=== PATIENT | female | born 1995 | race American Indian/Alaskan Native ===

== ENCOUNTER 2021-11-11 14:07 | Emergency (ER) | payer SELFPAY ==
[2021-11-11] MEDS ORDERED: ACETAMINOPHEN 325 MG TAB PO ONE (14:59)
--- NOTE | 2021-11-11 14:59 | Emergency Department Report ---
ED Abdominal Pain HPI - General Chief Complaint: Abdominal Pain Stated Complaint: LOWER ABDOMINAL PAIN Time Seen by Provider: 11/11/21 14:29 Source: patient Mode of arrival: Ambulatory Limitations: No Limitations - History of Present Illness Initial Comments: 26-year-old female presents to the ER today with complaints of lower abdominal pain and vaginal bleeding. Patient states that symptoms started this morning. 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 She states that she is only had to use 1 pad since the bleeding started. She states that her last normal menstrual cycle was September 27 through September 30. She states that a week later after her. She noticed that she had some brown vaginal spotting which lasted about 3 days. She did take a home test last week and it was negative. She states that she was supposed to have started her normal menstrual cycle 2 weeks ago. She is not currently on any control. She reports no UTI symptoms, nausea, vomiting, diarrhea or constipation. She is G4, P2 Ab2. MD Complaint: abdominal pain -: This morning - Related Data Allergies Allergy/AdvReac Type Severity Reaction Status Date / Time No Known Allergies Allergy Verified 11/11/21 14:17 ED Review of Systems ROS: Stated complaint: LOWER ABDOMINAL PAIN Other details as noted in HPI Comment: All other systems reviewed and negative Constitutional: denies: chills, fever Eyes: denies: eye pain, eye discharge, vision change ENT: denies: ear pain, throat pain Respiratory: denies: cough, shortness of breath, SOB with exertion, SOB at rest, wheezing Cardiovascular: denies: chest pain, palpitations Gastrointestinal: abdominal pain. denies: nausea, vomiting, diarrhea, constipation, hematemesis, melena, hematochezia Genitourinary: abnormal menses. denies: urgency, dysuria, frequency, hematuria, discharge, dyspareunia Musculoskeletal: denies: back pain, joint swelling, arthralgia Skin: denies: rash, lesions, change in color, change in hair/nails, pruritus Neurological: denies: headache, weakness, numbness, paresthesias, confusion, abnormal gait, vertigo Psychiatric: denies: anxiety, depression, auditory hallucinations, visual hallucinations, homicidal thoughts, suicidal thoughts Hematological/Lymphatic: denies: easy bleeding, easy bruising, swollen glands ED Physical Exam - General Limitations: No Limitations General appearance: alert, in no apparent distress - Head Head exam: Present: atraumatic, normocephalic, normal inspection - Eye Eye exam: Present: normal appearance, PERRL, EOMI Pupils: Present: normal accommodation - Neck Neck exam: Present: normal inspection, full ROM - Respiratory Respiratory exam: Present: normal lung sounds bilaterally. Absent: respiratory distress, wheezes, rales, rhonchi, stridor - Cardiovascular Cardiovascular Exam: Present: regular rate, normal rhythm, normal heart sounds - GI/Abdominal GI/Abdominal exam: Present: soft, tenderness (mild ttp suprapubic area without guarding or rebound ). Absent: distended - Neurological Exam Neurological exam: Present: alert, oriented X3, CN II-XII intact, normal gait - Psychiatric Psychiatric exam: Present: normal affect, normal mood - Skin Skin exam: Present: intact ED Course Vital Signs 11/11/21 11/11/21 14:18 17:47 Temperature 99.2 F 98.2 F Pulse Rate 84 70 Respiratory 16 15 Rate Blood Pressure 115/72 Blood Pressure 128/78 [Right] O2 Sat by Pulse 99 100 Oximetry ED Medical Decision Making - Lab Data Result diagrams: 11/11/21 16:35 11/11/21 16:35 - Medical Decision Making hCG negative. CMP BC and CMP unremarkable. Urinalysis suspect to be more related to contamination than a true UTI and at this time patient has no UTI symptoms. Patient is well-appearing, nontoxic and not in any acute distress. She is neurologically intact with a normal gait. She is hemodynamically stable she has a nonsurgical abdominal exam. I believe patient main concern was try to figure out whether she was given her abnormal bleeding. At this time I do not see an indication for doing any pelvic ultrasounds, CT scans or any additional emergent testing through the ER. Discussed all results with patient. She will be given referral to [facility] for further evaluation. Patient expressed understanding, and agree with plan. Patient was stable at time of discharge Critical care attestation.: If time is entered above; I have spent that time in minutes in the direct care of this critically ill patient, excluding procedure time. ED Disposition Clinical Impression: Abnormal menstrual cycle Disposition: HOME / SELF CARE / HOMELESS Is pt being admited?: No Does the pt Need Aspirin: No Condition: Stable Instructions: Abnormal Uterine Bleeding, [id number], Abdominal Pain (ED) Additional Instructions: I recommend taking Tylenol and/or ibuprofen as needed for pain. Follow-up with [facility] listed on your discharge instructions for continued monitoring of your menstrual cycle and bleeding. Return to the ER if at any point your symptoms worsens or changes in any way. Referrals: [facility] [Provider Group] - 3-5 Days [facility] [Provider Group] - 3-5 Days Forms: Work/School Release Form(ED) Time of Disposition: 17:39
[2021-11-11 16:46] LABS: Basophils % (Auto) 0.8 % (0.0-1.8); Eosinophils # (Auto) 0.3 K/mm3 (0.0-0.4); Eosinophils % (Auto) 4.2 % (0.0-4.3); Hematocrit 36.7 % (30.3-42.9); Hemoglobin 11.6 gm/dl (10.1-14.3); Lymphocytes # (Auto) 2.4 K/mm3 (1.2-5.4); Lymphocytes % (Auto) 37.3 % (13.4-35.0); Mean Corpuscular HGB Conc 32 % (30-34); Mean Corpuscular Volume 81 fl (79-97); Monocytes # (Auto) 0.5 K/mm3 (0.0-0.8); Monocytes % (Auto) 8.1 % (0.0-7.3); Platelet Count 259 K/mm3 (140-440); Red Blood Count 4.55 M/mm3 (3.65-5.03); Red Cell Distribution Width 13.1 % (13.2-15.2)
[2021-11-11 17:48] VITALS: BP 128/78
[2021-11-11 18:10] LABS: Bilirubin,Urine NEG (Negative); Blood,Urine LG (Negative); Color,Urine Amber (Yellow); Mucus,Urine 3+ /HPF
[2021-11-11 18:10] LABS: Alanine Aminotransferase 28 units/L (7-56); Albumin 4.6 g/dL (3.9-5); Blood Urea Nitrogen 11 mg/dL (7-17); Calcium 9.5 mg/dL (8.4-10.2); Hemolysis Index 15
[2021-11-11 18:23] LABS: BUN/Creatinine Ratio 16
== END 2021-11-11 17:48 | disposition home or self-care (01) ==
LOC: ED 14:07
DX: N92.6 Irregular menstruation, unspecified (principal)
CPT/HCPCS: 36415; 80053; 81001; 84703; 85025; 87086; 99283